=== PATIENT | male | born 1980 | race Caucasian/White ===

== ENCOUNTER 2023-08-24 08:04 | Emergency (ER) | payer BC, SELFPAY ==
--- NOTE | 2023-08-24 08:11 | ED.ABDPAIN ---
HPI - Abdominal Pain General Chief Complaint: Abdominal Pain Stated Complaint: rt side pain Time Seen by Provider: 08/24/23 08:20 Source: patient, RN notes reviewed and old records reviewed Mode of arrival: ambulatory Limitations: no limitations History of Present Illness HPI narrative: 42-year-old male presents to the [facility] with complaints of right lower quadrant pain that started . Has been waxing and weaning, felt fine yesterday, return worse today. Denies any nausea vomiting. Denies fevers. Denies any history of any abdominal surgeries. No history of kidney stones. Denies any urinary symptoms Patient verbalizes concern for appendicitis Related Data Home Medications Medication Instructions Recorded Confirmed No Home Medications 08/24/23 08/24/23 Allergies Allergy/AdvReac Type Severity Reaction Status Date / Time peanuts Allergy Mild GI upset Uncoded 08/24/23 08:33 Review of Systems Review of Systems: All systems reviewed & are unremarkable except as noted in HPI and below Constitutional: Constitutional: Reports no additional constitutional complaints Eyes: Eyes: Reports no additional eye complaints ENT: Reports system reviewed and no additional complaints, except as documented Cardiovascular: Cardiovascular: Reports no additional cardiovascular complaints, Denies chest pain and Denies dyspnea Respiratory: Respiratory: Reports no additional respiratory complaints, Denies chest congestion, Denies cough and Denies dyspnea Gastrointestinal: Gastrointestinal: Reports as per HPI, Reports abdominal pain (Right lower quadrant), Denies nausea and Denies vomiting Musculoskeletal: Musculoskeletal: Reports no additional musculoskeletal complaints Integumentary/Breasts: Skin/Breast: Reports system reviewed and no additional complaints, except as docu Neurologic: Reports system reviewed and no additional complaints, except as documented Psychiatric: Psychiatric: Reports no additional psychiatric complaints Allergic/Immunologic: Allergic/Immunologic: Reports no additional allergic/immunologic complaints PMFSH Past Medical History Medical History Patient denies medical problems Surgical History Surgical History (Updated 08/24/23 @ 08:28 by Alesia Mcarthur APRN) No pertinent past surgical history Comments At the time of my signature, I reviewed and agree with the nursing past medical, surgical, social, and family history. There is no relevant family history pertinent to the patient complaint. Exam Const: General: cooperative, healthy appearing, no acute distress, well developed, alert, uncomfortable and well nourished Nutritional Appearance: well nourished and obese Orientation/consciousness: patient oriented x3 Limitations: no limitations HENMT: Head: normal to inspection Ears: hearing grossly normal bilaterally and external ears normal Face/Nose/Sinus: Normal external nose present, Normal nares present, Normal nasal mucous membranes and turbinates present, normal facial exam and face symmetric Face and sinus: normal facial exam and face symmetric Mouth: Yes lip normal and Yes moist mucous membranes Eyes: General: appearance normal, both eyes and all related structures Alignment and Position: alignment normal Periorbital: periorbital findings normal Pupils: Equal, round and reactive pupils present EOM: EOMs intact bilaterally Neck: Neck: normal visual inspection, full ROM, no lymphadenopathy and no meningeal signs Chest: Chest palpation & inspection: normal inspection of the chest Resp: Effort & Inspection: normal respiratory effort and able to speak in complete sentences Cardio: Rate: regular rate Rhythm: regular rhythm GI: GI Palp: Yes abdominal tenderness (Right lower quadrant) and No Guarding due to palpation present (GI) Auscultation: normal bowel sounds : General: Yes no CVA tenderness Back/Spine/Pelvis: Cervica
[2023-08-24 08:22] VITALS: BP 141/80; PULSE 90; RESP 20; TEMP 36.6; O2SAT 98
== END 2023-08-24 08:30 | disposition short-term general hospital (02) ==
PROVIDERS: Emergency Provider Nurse Practitioner; PCP Internal Medicine
DX: R10.31 Right lower quadrant pain (principal)
CPT/HCPCS: 99202; G0463

== ENCOUNTER 2023-08-24 08:44 | Emergency (ER) | payer BC, SELFPAY ==
--- NOTE | ~2023-08-24 | CT_ITS ---
EXAMINATION: CT abdomen pelvis w con DATE: 08/24/2023 11:03 INDICATION: Right lower quadrant abdominal pain TECHNIQUE: Computed tomography (CT) of the abdomen and pelvis was performed with 100 CC Omnipaque 350 intravenous contrast. Automated exposure control and iterative reconstruction technique were employe d. Exam dose: 1652.53 mGy-cm total exam DLP. COMPARISON: None. FINDINGS: Normal heart size. No pericardial or pleural effusion. Small sliding hiatal hernia. The lung bases are clear of infiltrate or consolidation. The gallbladder is present. No gallbladder wall thickening or pericholecystic fluid or fat stranding. No bile duct or pancreatic duct dilatation. Diffuse hepatic steatosis with minimal pericholecystic sparing. No hepatic, splenic, pancreatic or ri ght adrenal space-occupying mass lesion is evident. A couple of small left adrenal myelolipoma is are suggested. Approximately 6 mm posterolateral mid left renal hyperdense lesion, indeterminate. This could be a pr oteinaceous or hemorrhagic cyst but this is not completely evaluated without benefit of pre- and post contrast CT imaging or MR imaging. No urinary tract calculus or hydroureteronephrosis. The urinary bladder and prostate gland are unrema rkable. Normal appendix. There is no evidence of appendicitis. Minimal left colon diverticulosis; no CT evide nce of diverticulitis. No bowel obstruction, bowel wall thickening, pneumatosis or intraperitoneal fr ee air is detected. Normal caliber of the abdominal aorta. No intraperitoneal or retroperitoneal or pelvic mass lesion or adenopathy or ascites. Small fat-containing umbilical hernia. Included skeletal structures are unremarkable. IMPRESSION: Normal appendix Minimal colonic diverticulosis; no CT evidence of diverticulitis Hepatic steatosis Reviewed, dictated and finalized at [facility]. Reviewed, dictated and finalized at [facility]. [facility] [employer]
[2023-08-24 08:46] VITALS: BP 153/88; PULSE 61; RESP 16; TEMP 36.9; O2SAT 100
[2023-08-24 09:27] VITALS: BP 166/85; PULSE 78; RESP 16; TEMP 36.7; O2SAT 98
[2023-08-24 09:40] LABS: Basophils Absolute Auto 0.1 K/mm3 (0.0-0.1); Basophils Percent Auto 0.6 % (0.2-1.2); Eosinophils Absolute Auto 0.2 K/mm3 (0-0.3); Eosinophils Percent Auto 1.8 % (0-4.4); Hematocrit 49.2 % (42.0-52.0); Hemoglobin 17.2 g/dL (14.0-18.0); Immature Granulocyte Absolute 0.05 K/mm3 (0.00-0.031); Immature Granulocyte Percent A 0.5 % (0-0.5); Lymphocytes Percent Auto 37.3 % (18.3-44.2); Mean Corpuscular Hemoglobin 32.5 pg (26-34); Mean Corpuscular Volume 92.8 fl (80-100); Mean Platelet Volume 9.8 fl (7.4-10.4); Monocytes Absolute Auto 0.8 K/mm3 (0.1-0.6); Neutrophils Absolute Auto 5.7 K/mm3 (1.3-6.7); Neutrophils Percent Auto 52.8 % (45.5-73.1); Platelet Count Result 297 k/mm3 (150-375); Red Cell Distribution Width 12.4 % (11.5-14.5); White Blood Count 10.7 K/mm3 (4.5-10.0)
[2023-08-24 09:41] LABS: Appearance Urine Clear (Clear); Bilirubin Urine Negative (Negative); Blood Urine Negative (Negative); Color Urine Yellow (Yellow); Glucose Urine UA Negative (Negative); Ketones Urine Negative (Negative); Leukocyte Esterase Ur Negative LEU/UL (Negative); Nitrate Urine Negative (Negative); Protein Urine Negative (Negative); Specific Grav Ur 1.024 (1.001-1.035); pH Urine 5.5 (5.0-9.0)
[2023-08-24 09:46] VITALS: BP 136/89; PULSE 80; RESP 16; TEMP 36.6; O2SAT 94
--- NOTE | 2023-08-24 09:46 | ED.ABDPAIN ---
HPI - Abdominal Pain General Chief Complaint: Abdominal Pain Stated Complaint: r/o appy Time Seen by Provider: 08/24/23 09:15 Source: patient Mode of arrival: ambulatory Limitations: no limitations History of Present Illness HPI narrative: Patient is a 42 y/o male who presents to the ED with c/o RLQ abdominal pain. Patient reports pain 1st began on and has been worsening since then. Pain became significantly worse last night, which prompted him to go to an urgent care today where he was then referred here for further evaluation and to rule out appendicitis. No radiation of pain to back or groin/testicle. Patient reports pain aggravated with coughing, laughing, certain movements. Minimal improvement with ibuprofen. Denies any recent strenuous activity or abnormal exertion. Denies history of similar pain. Denies nausea, vomiting, diarrhea, constipation, fevers, urinary complaints. Related Data Home Medications Medication Instructions Recorded Confirmed No Home Medications 08/24/23 08/24/23 Allergies Allergy/AdvReac Type Severity Reaction Status Date / Time peanuts Allergy Mild GI upset Uncoded 08/24/23 08:33 Review of Systems Review of Systems: CONSTITUTIONAL: Denies fever, chills, or sweats. CARDIOVASCULAR: Denies chest pain. RESPIRATORY: Denies dyspnea. GASTROINTESTINAL: See HPI GENITOURINARY: Denies dysuria or hematuria. MUSCULOSKELETAL: Denies back pain, extremity pain, myalgia. All systems reviewed & are unremarkable except as noted in HPI and below PMFSH Past Medical History Medical History Patient denies medical problems Surgical History Surgical History No pertinent past surgical history Exam Narrative: GENERAL: Well appearing, obese with BMI of 32.9, non-toxic, in no acute distress. HEAD: Normocephalic, atraumatic. RESPIRATORY: Airway patent, respirations nonlabored. Clear to auscultation bilaterally, no rales, rhonchi, wheezing. CARDIOVASCULAR: Regular rate and rhythm. ABDOMINAL: Soft, focal TTP in RLQ, minimal tenderness in R mid and upper abdomen, nondistended. Normoactive BS. MUSCULOSKELETAL: Moves all extremities. No gross deformities. SKIN: Warm, dry, normal color. NEURO: A&O X3. Speech clear. Cranial nerves II-XII grossly intact. Steady gait. No ataxic movements. PSYCHIATRIC: Appropriate mood and affect. Normal interaction. Course Vital Signs Vital signs: Vital Signs Temperature 98.4 F 08/24/23 08:46 Pulse Rate 61 08/24/23 08:46 Respiratory Rate 16 08/24/23 08:46 Blood Pressure 153/88 H 08/24/23 08:46 Pulse Oximetry 100 08/24/23 08:46 Oxygen Delivery Room Air 08/24/23 08:46 Temperature 97.9 F 08/24/23 12:30 Pulse Rate 76 08/24/23 12:30 Respiratory Rate 20 08/24/23 12:30 Blood Pressure 143/76 H 08/24/23 12:30 Pulse Oximetry 100 08/24/23 12:30 Oxygen Delivery Room Air 08/24/23 08:46 MDM - Abdominal Pain MDM Narrative Medical decision making narrative: Patient presented to ED with right lower quadrant abdominal pain, onset on , continuing to worsen since then. Vital stable upon arrival. Patient afebrile. CBC with leukocytosis of 10.7. CMP unremarkable. Stable kidney function. Normal LFTs and lipase. ALT mildly elevated to 96, AST normal. Glucose mildly elevated to 162, no previous history of diabetes. May be reactive. Lactic acid within normal limits at 1.9. UA negative. CT abdomen pelvis obtained and unremarkable. Shows diverticulosis, no evidence of diverticulitis. Specifically normal appendix. Patient was updated on lab and imaging findings. Feeling better with supportive therapy. Will be discharged at this time. Advised follow-up with primary care doctor for further evaluation. Given strict return precautions should pain worsen. Patient in agreement with plan. Discharged in
[2023-08-24 09:50] LABS: Add Urine Microscopic? NO
[2023-08-24 09:59] LABS: Lactic Acid Reflex 1.6 mmol/L (0.7-2.0)
[2023-08-24 10:00] LABS: Alanine Aminotransferase 96 U/L (6-50); Albumin Level 4.4 g/dL (3.5-5.1); Alkaline Phosphatase 90 U/L (38-126); Anion Gap 9 mmol/L (8-16); Aspartate Amino Transferase 50 U/L (17-59); Bilirubin,Total 0.6 mg/dL (0.2-1.3); Blood Urea Nitrogen 10 mg/dL (9-20); Calcium 9.5 mg/dL (8.4-10.2); Carbon Dioxide 26 mmol/L (22-30); Chloride 105 mmol/L (98-107); Estimated CRCL calculation 132 ml/min; Estimated Glomerular Filt Rate > 60; Glucose 162 mg/dL (65-110); Lipase 44 U/L (23-300); Potassium 3.7 mmol/L (3.4-5.0); Sodium 140 mmol/L (137-145)
[2023-08-24] MEDS: ONDANSETRON INJ 4 MG/2 ML VIAL IV PUSH (10:13)
[2023-08-24] MEDS: SODIUM CHLORIDE 0.9% IV 1,000 ML 999 ML IV CONT (10:13)
[2023-08-24] MEDS: MORPHINE SULFATE (*CRX) 4 MG/ML INJ IV PUSH (10:13)
[2023-08-24] MEDS: KETOROLAC 30 MG/ML VIAL (*BKC) IV PUSH (12:18)
[2023-08-24 12:22] VITALS: BP 132/73; PULSE 77; RESP 18; O2SAT 100
[2023-08-24 12:30] VITALS: BP 143/76; PULSE 76; RESP 20; TEMP 36.6; O2SAT 100
== END 2023-08-24 12:31 | disposition home or self-care (01) ==
PROVIDERS: Emergency Provider Physician Assistant; PCP Internal Medicine
DX: K57.90 Diverticulosis of intestine, part unspecified, without perforation or abscess without bleeding (principal); R10.31 Right lower quadrant pain; K76.0 Fatty (change of) liver, not elsewhere classified
CPT/HCPCS: 36415; 74177; 80053; 81003; 83605; 83690; 85025; 96361; 96374; 96375; 99284; J1885; J2270; J2405; J7030; Q9967